=== PATIENT | male | born 1965 | race Caucasian/White ===

== ENCOUNTER → 2020-09-16 | Outpatient (CLI) | payer BC ==
[~2020-09-16] MED LIST: BACTROBAN OINT22 GM PO; HUMALOG100 UNIT/1 SQ; KEFLEX500 MG PO; LANTUS100 U/ML SC; MOTRIN800 MG PO; QUINAPRIL10 M1 PO; SYNTHROID,LEV175 MCG PO; ZOCOR20 MG PO
== END | disposition home or self-care (01) ==
LOC: COVID19 12:32
PROVIDERS: ATTEND Student in an Organized Health Care Education/Training Program
DX: U07.1 COVID-19 (principal)